=== PATIENT | male | born 1950 | race Caucasian/White ===

== ENCOUNTER 2017-07-15 15:20 | Emergency (ER) | payer MEDICARE, OTHER ==
[2017-07-15 16:22] LABS: HEMOGLOBIN 10.4 gm/dl (14.0-17.5); RED BLOOD COUNT 3.51 M/UL (4.20-5.50)
== END 2017-07-15 19:55 | disposition short-term general hospital (02) ==
LOC: ER1 15:20
PROVIDERS: Emergency Medicine
DX: I50.9 Heart failure, unspecified (principal); J96.90 Respiratory failure, unspecified, unspecified whether with hypoxia or hypercapnia; N19 Unspecified kidney failure; R91.8 Other nonspecific abnormal finding of lung field; E11.9 Type 2 diabetes mellitus without complications; N50.819 Testicular pain, unspecified; I48.91 Unspecified atrial fibrillation; D69.6 Thrombocytopenia, unspecified; D64.9 Anemia, unspecified; K74.60 Unspecified cirrhosis of liver; Z79.84 Long term (current) use of oral hypoglycemic drugs; Z79.899 Other long term (current) drug therapy
CPT/HCPCS: 36415; 36600; 71010; 76870; 80053; 82550; 82553; 82800; 82803; 82962; 83874; 83880; 84484; 85025; 87040; 93005; 94640; 94660; 94664; 96365; 96375; 99285; J0456; J0696; J1940; J7030; J7050